=== PATIENT | female | born 1965 | race Caucasian/White ===

== ENCOUNTER 2018-09-15 08:00 | Outpatient (CLI) | payer OTHER | END 2018-09-15 23:59 | disposition home or self-care (01) | LOC: LAB.R 08:00 | PROVIDERS: ATTEND Physician Assistant Medical | DX: R39.15 Urgency of urination (principal) | CPT/HCPCS: 87086 ==

== ENCOUNTER 2018-10-31 12:28 | Outpatient (CLI) | payer OTHER ==
--- NOTE | 2018-11-03 15:49 | Mammography Report ---
Reason: ROUTINE MAMMO Procedure Date: 10/31/2018 Accession Number: [id number] / [id number] Procedure: MGN - Screening Mammo Dig Bilat CPT Code: FULL RESULT: EXAM: Screening Mammo Dig Bilat DATE: 10/31/2018 12:49 PM CLINICAL HISTORY: Routine screening TECHNIQUE: (B) - Bilateral CC and MLO views were obtained. COMPARISON: 08/12/2015 09/05/2012 and 05/18/2011 PARENCHYMAL PATTERN: (D) - The breasts demonstrate heterogeneously dense fibroglandular parenchyma bilaterally. FINDINGS: No significant interval change. There are no suspicious masses, calcifications, or areas of distortion. IMPRESSION: Negative examination. BI-RADS category 1. RECOMMENDATION: (ANNUAL) - Recommend routine annual screening mammography. BI-RADS CATEGORY: (1) - Negative. STANDARD QUALIFYING STATEMENTS: 1. This examination was not reviewed with the aid of Computer-Aided Detection (CAD). 2. A negative or benign imaging report should not preclude biopsy if clinically suspicious findings are present. 3. Dense breasts may obscure an underlying neoplasm. 4. This examination was reviewed without the aid of 3D breast imaging (tomosynthesis).
== END 2018-10-31 12:29 | disposition home or self-care (01) ==
LOC: DI.N 12:28
PROVIDERS: ATTEND Family Medicine
DX: Z12.31 Encounter for screening mammogram for malignant neoplasm of breast (principal)
CPT/HCPCS: 77067

== ENCOUNTER 2019-05-06 14:47 | Outpatient (CLI) | payer OTHER ==
--- NOTE | 2019-05-07 08:41 | XRAY Report ---
Reason: ASTHMA Procedure Date: 05/06/2019 Accession Number: [id number] / [id number] Procedure: WCP - Chest 2 View X-Ray CPT Code: 92165 Final Report FULL RESULT: EXAM: CHEST RADIOGRAPHY EXAM DATE: 05/06/2019 02:47 PM. CLINICAL HISTORY: ASTHMA. Cough and shortness of breath COMPARISON: None. TECHNIQUE: 2 views. FINDINGS: Lungs/Pleura: No focal opacities evident. No pleural effusion. No pneumothorax. Normal volumes. Mediastinum: Heart and mediastinal contours are unremarkable. Other: None. IMPRESSION: Normal 2-view chest radiography. RADIA
== END 2019-05-06 23:59 | disposition home or self-care (01) ==
LOC: DI.WCP 14:47
PROVIDERS: ATTEND Physician Assistant
DX: J45.901 Unspecified asthma with (acute) exacerbation (principal)
CPT/HCPCS: 71046

== ENCOUNTER 2021-07-27 09:29 | Outpatient (CLI) | payer OTHER ==
--- NOTE | 2021-07-27 10:33 | XRAY Report ---
PROCEDURE: Cervical Spine 2 View INDICATIONS: CERVICAL RADICULOPATHY TECHNIQUE: 3 view(s) of the cervical spine were acquired. COMPARISON: None. FINDINGS: Bones: No fractures or dislocations to the T7 level. The lateral masses of C1 appear intact on the odontoid view. No suspicious bony lesions. Mild C5-C6 and C6-C7 degenerative disc disease. Soft tissues: No prevertebral soft tissue swelling. IMPRESSION: Mild C5-C6 and C6-C7 degenerative disc disease. No acute osseous lesion. If there is continued clinical concern for pathology, then MRI should be con sidered for further evaluation. Reviewed by: Josi Russell MD, PhD on 07/27/2021 10:32 AM PDT Approved by: Josi Russell MD, PhD on 07/27/2021 10:32 AM PDT Station ID: [id number]
--- NOTE | 2021-07-27 10:34 | XRAY Report ---
PROCEDURE: Knee 3 View LT INDICATIONS: KNEE PAIN, LEFT TECHNIQUE: 3 views of the left mild osteoarthritic degenerative changes noted in all 3 compartments of the left knee. knee(s) were acquired. COMPARISON: None. FINDINGS: Bones: No fractures or dislocations. No suspicious bony lesions. Soft tissues: No joint effusion. No suspicious soft tissue calcifications. IMPRESSION: Mild left knee tricompartmental osteoarthritis. Reviewed by: Josi Russell MD, PhD on 07/27/2021 10:33 AM PDT Approved by: Josi Russell MD, PhD on 07/27/2021 10:33 AM PDT Station ID: [id number]
--- NOTE | 2021-07-27 10:35 | XRAY Report ---
PROCEDURE: Lumbar Spine 2 View INDICATIONS: LUMBAR RADICULOPATHY TECHNIQUE: 3 views of the lumbar spine were acquired. COMPARISON: None. FINDINGS: Bones: 5 hpi-jom-endoojp vertebrae are present. There is trace L1-L2, L2-L3 and L3 on L4 retrolisth esis. There is convex left lumbar spine scoliosis. No vertebral body compression fractures. No suspi cious bony lesions. Mild L1-L2, L2-L3 and L3-L4 degenerative disc disease. Mild L3-L4, L4-L5 and L5-S 1 facet arthropathy. Soft tissues: Overlying bowel gas pattern is normal. No suspicious soft tissue calcifications. IMPRESSION: 1. Multilevel degenerative disc disease. 2. Multilevel facet arthropathy. 3. No fracture. No acute osseous lesion. If there is continued clinical concern for pathology, then M RI should be considered for further evaluation. 4. Convex left scoliosis. Reviewed by: Josi Russell MD, PhD on 07/27/2021 10:34 AM PDT Approved by: Josi Russell MD, PhD on 07/27/2021 10:34 AM PDT Station ID: [id number]
== END 2021-07-27 09:30 | disposition home or self-care (01) ==
LOC: DI.N 09:29
PROVIDERS: ATTEND Physician Assistant Medical
DX: M17.12 Unilateral primary osteoarthritis, left knee (principal); M50.322 Other cervical disc degeneration at C5-C6 level; M51.36 Other intervertebral disc degeneration, lumbar region; M47.816 Spondylosis without myelopathy or radiculopathy, lumbar region; M47.817 Spondylosis without myelopathy or radiculopathy, lumbosacral region; M41.9 Scoliosis, unspecified

== ENCOUNTER 2021-09-14 15:30 | Outpatient (CLI) | payer OTHER ==
--- NOTE | 2021-09-15 09:46 | Mammography Report ---
BILATERAL DIGITAL SCREENING MAMMOGRAM 3D/2D: 09/14/2021 CLINICAL: Routine screening. Comparison is made to exams dated: 10/31/2018 mammogram, 08/26/2015 mammogram, 08/12/2015 mammogram, 08/06 mammogram, and 05/18/2011 mammogram - [facility]. There are scattered fibrogl andular elements in both breasts. No significant masses, calcifications, or other findings are seen in either breast. There has been no significant interval change. IMPRESSION: NEGATIVE There is no mammographic evidence of malignancy. A 1 year screening mammogram is recommended. Based on the Tyrer Cuzick model (a risk assessment model) the patients lifetime risk is 8.9% and her 10 year risk is 2.9%. According to the ACR, ACS, and NCCN guidelines, an annual breast MRI exam anjali g with mammogram is recommended if the patients lifetime risk is 20% or greater. This exam was interpreted at Station ID: [id number]. NOTE: For mammograms, a report in lay terms will be sent to the patient. Approximately 15% of breast malignancies will not be visualized mammographically. In the management of a palpable breast mass, a negative mammogram must not discourage biopsy of a clinically suspicious lesion. Electronically Signed By: Alvino Vega acr/[email or web address]:09/15/2021 08:55:02 ACR BI-RADS Category 1: Negative 3341F PARENCHYMAL PATTERN: (A) - The breast(s) demonstrate(s) scattered fibroglandular densities. BI-RADS CATEGORY: (1) - 1 RECOMMENDATION: (ANNUAL) - Recommend routine annual screening mammography. [id number] 1 year screening LATERALITY: (B)
== END 2021-09-14 15:31 | disposition home or self-care (01) ==
LOC: DI.N 15:30
DX: Z12.31 Encounter for screening mammogram for malignant neoplasm of breast (principal)

== ENCOUNTER 2022-03-06 09:04 | Day surgery (SDC) | payer OTHER ==
[2022-03-06] MEDS ORDERED: LACTATED RINGERS 1,000 ML IV ONE ×2 (09:08→12:27)
[2022-03-06] MEDS ORDERED: PROPOFOL 500 MG/50 ML 500 MG/50 ML VIAL ONE (09:09)
[2022-03-06] MEDS ORDERED: MIDAZOLAM 2 MG/2 ML VIAL ONE (10:01)
--- NOTE | 2022-03-06 10:02 | ANESTHESIA ---
Pre-Anesthesia VS, & Labs - Diagnosis positve cologuard, hemorrhoid - Procedure colonoscopy, possible hemorrhoid banding Vital Signs: Temp Pulse Resp BP Pulse Ox O2 Flow Rate 36.1 C L 67 18 101/81 H 97 03/06/22 09:09 03/06/22 09:09 03/06/22 09:09 03/06/22 09:09 03/06/22 09:09 Height: 5 ft 4 in Weight (kg): 86.7 kg Body Mass Index: 32.8 BMI Classification: Obese - NPO >8 hours Last Fluid Intake: am prep - Is Patient ?: No - Lab Results Lab results reviewed: Yes Home Medications and Allergies Home Medications: Ambulatory Orders ALPRAZolam [Alprazolam] 0.5 mg PO DAILY 03/05/22 busPIRone [Buspar] 30 mg PO DAILY 03/05/22 ALPRAZolam [Alprazolam] 0.5 mg PO DAILY 03/05/22 busPIRone [Buspar] 30 mg PO DAILY 03/05/22 Allergies/Adverse Reactions: Allergies Allergy/AdvReac Type Severity Reaction Status Date / Time Sulfa (Sulfonamide AdvReac Unknown Verified 03/05/22 12:30 Antibiotics) Anes History & Medical History - Anesthetic History Anesthesia Complications: reports: No previous complications Family history of Anesthesia Complications: Denies Family history of Malignant Hyperthermia: Denies - Medical History Cardiovascular: reports: Arrhythmia Pulmonary: reports: Asthma Gastrointestinal: reports: Hemorrhoids Urinary: reports: None Musculoskeletal: reports: Osteoarthritis Endocrine/Autoimmune: reports: None Skin: reports: None Exam General: Alert, Oriented x3 Dental: WNL Mouth Openin Fingerbreadth Neck Mobility: Normal Mallampati classification: II Thyromental Distance: 4-6 cm Respiratory: Lungs clear, Normal breath sounds, No respiratory distress Cardiovascular: Regular rate Neurological: Normal speech Mental/Cognitive Status: Alert/Oriented X3, Normal for patient Cognitive Status: Within normal limits Plan Anesthesia Type: Total IV Consent for Procedure(s) Verified and Reviewed: Yes Code Status: Attempt Resuscitation ASA classification: 2-Mild systemic disease Is this case an emergency?: No
[2022-03-06] MEDS ORDERED: PROPOFOL 200 MG/20 ML VIAL IVP ONE ×2 (10:15→12:14)
[2022-03-06] MEDS ORDERED: GLYCOPYRROLATE 1 MG/5 ML VIAL ONE (11:46)
[2022-03-06] MEDS ORDERED: DIATRIZOATE MEGLU/DIATRIZO SOD 30 ML BOTTLE PO ONE ×2 (12:50→15:06)
[2022-03-06] MEDS ORDERED: iohexoL-300 100 ML VIAL ONE (12:50)
[2022-03-06 13:08] LABS: CALCIUM 8.9 mg/dL (8.5-10.3); POTASSIUM 4.1 mmol/L (3.5-5.0)
--- NOTE | 2022-03-06 13:53 | ANESTHESIA POST OP EVALUATION ---
Anesthesia Post Eval - Post Anesthesia Eval Vitals: Last Vital Signs Temp 36.5 C 03/06/22 12:45 Pulse 52 L 03/06/22 12:45 Resp 16 03/06/22 12:45 BP 110/47 L 03/06/22 12:45 Pulse Ox 100 03/06/22 12:45 O2 Flow Rate CV Function Including HR & BP: Stable Pain Control: Satisfactory Nausea & Vomiting: Negative Mental Status: Baseline Respiratory Status: Airway Patent Hydration Status: Satisfactory Anesthesia Complications: None
[2022-03-06 14:06] VITALS: BP 115/71
[2022-03-06] MEDS ORDERED: iohexoL-300 100 ML VIAL IVP ONE (15:06)
--- NOTE | 2022-03-06 15:16 | CT Report ---
PROCEDURE: Macro CT abdomen and pelvis with contrast INDICATIONS: incomplete colonoscopy, please use rectal contrast CONTRAST: 100ml OMnipaque 300 TECHNIQUE: After the administration of IV and rectal contrast, 5 mm thick sections acquired from the diaphragms to the symphysis. 5 mm thick coronal and sagittal reformats were acquired. For radiation dose reduc tion, the following was used: automated exposure control, adjustment of mA and/or kV according to pa tient size. COMPARISON: None. FINDINGS: Lower thorax: The lung bases are clear. Heart size normal. No hiatal hernia. Liver: Normal in size and attenuation. No contour deformity present. Biliary system: Cholelithiasis without cholecystitis Pancreas: Unremarkable without mass or inflammation evident. Spleen: Normal in size and density. Adrenals: Normal morphology and density. Reproductive system: Unremarkable as visualized. Urinary system: Normal renal size and attenuation. No renal calculi, hydronephrosis, or solid mass p resent. Urinary bladder unremarkable. Gastrointestinal system: Normal sigmoid diverticuli noted. No evidence of constricting mass lesion. Appendix: No findings to suggest acute appendicitis. Peritoneal spaces: No mesenteric or retroperitoneal adenopathy. No free air. No free fluid. Vasculature: The IVC, aorta and iliac vasculature are unremarkable. Musculoskeletal: Normal bone mineralization. No acute fractures. Abdominal wall intact without brett dence of ventral or inguinal hernias. IMPRESSION: 1. Minimal sigmoid diverticulosis. Otherwise unremarkable CT colon with rectal contrast. No evidence of constricting mass lesion. 2. Incidental cholelithiasis without cholecystitis Reviewed by: Diego Schultz MD on 03/06/2022 2:15 PM AKST Approved by: Diego Schultz MD on 03/06/2022 2:15 PM AKST Station ID: [id number]
== END 2022-03-06 09:05 | disposition home or self-care (01) ==
LOC: SDS 09:04
PROVIDERS: ATTEND Surgery
DX: R19.5 Other fecal abnormalities (principal); K57.30 Diverticulosis of large intestine without perforation or abscess without bleeding; E66.9 Obesity, unspecified; Z68.32 Body mass index [BMI] 32.0-32.9, adult
CPT/HCPCS: 36415; 45378; 74177; 80048; J7120; Q9963; Q9967

== ENCOUNTER 2022-05-29 08:00 | Outpatient (CLI) | payer OTHER ==
[2022-05-29 20:57] LABS: BACTERIAL VAGINOSIS DNA NEGATIVE (NEGATIVE); CANDIDA GLABRATA DNA NEGATIVE (NEGATIVE); CANDIDA GROUP DNA NEGATIVE (NEGATIVE); CANDIDA KRUSEI DNA NEGATIVE (NEGATIVE); TRICHOMONAS VAGINALIS DNA NEGATIVE (NEGATIVE)
== END 2022-05-29 23:59 | disposition home or self-care (01) ==
LOC: LAB.WCP 08:00
PROVIDERS: ATTEND Physician Assistant Medical
DX: N76.0 Acute vaginitis (principal)
CPT/HCPCS: 81514

== ENCOUNTER 2022-07-11 08:00 | Outpatient (CLI) | payer OTHER | END 2022-07-11 23:59 | disposition home or self-care (01) | LOC: LAB 08:00 | PROVIDERS: ATTEND Nurse Practitioner | DX: S81.801A Unspecified open wound, right lower leg, initial encounter (principal) | CPT/HCPCS: 87070; 87077; 87181; 87205 ==

== ENCOUNTER 2023-09-17 01:27 | Emergency (ER) | payer OTHER ==
--- NOTE | 2023-09-17 01:42 | ED Physician Documentation ---
PD HPI DYSPNEA - Stated complaint Stated Complaint: COUGH/SOA - Chief complaint Chief Complaint: Resp - History obtained from History obtained from: Patient - Additional information Additional information: HPI from patient. Patient complains of shortness of breath, wheezing. Patient says she had URI symptoms last month at which time she took a home COVID test with positive result. On 09/03, patient saw PCP (scheduled visit); she mentioned to her PCP that she was still having frequent coughing, occasional wheezing, and mild shortness of breath since the COVID test was positive. She was prescribed levalbuterol; she says she has been diagnosed with asthma in the past and recalls some jitteriness with albuterol (and thus was prescribed levalbuterol). She says she has had decreasing results with the levalbuterol since it was prescribed. She contacted her primary care provider who then submitted a prescription for Arnuita Ellipta (fluticasone furoate) to her pharmacy, but patient has not yet picked it up as she notes the text from her pharmacy that the medication was ready indicated the cost will be $230. Patient tried a DuoNeb without relief earlier tonight (as noted above, she has not had an asthma exacerbation in a few years, and she found that the DuoNeb had 3 years ago). Patient presents at this time due to steadily worsening dyspnea, intermittent wheezing, frequent nonproductive cough. On ROS, initially denies chest pain but then clarifies that she has some chest discomfort when coughing. Denies leg swelling. Denies fever Review of Systems Constitutional: denies: Fever, Chills, Sweats Cardiac: reports: Chest pain / pressure (only with coughing). denies: Pedal edema, Calf pain Respiratory: reports: Dyspnea, Cough, Wheezing. denies: Hemoptysis PD PAST MEDICAL HISTORY - Past Medical History Past Medical History: Yes Cardiovascular: Arrhythmia Respiratory: Asthma Endocrine/Autoimmune: None GI: Hemorrhoids : None HEENT: Chronic vision loss Psych: Depression, Anxiety Musculoskeletal: Osteoarthritis Derm: None - Past Surgical History Past Surgical History: No - Present Medications Home Medications: Ambulatory Orders Medication Instructions Recorded Confirmed ALPRAZolam [Alprazolam] 0.5 mg PO DAILY 03/05/22 03/05/22 busPIRone [Buspar] 30 mg PO DAILY 03/05/22 03/06/22 Ipratropium/Albuterol [Duoneb] 3 ml INH Q6H PRN #30 ea 09/17/23 guaiFENesin/CODEINE [Robitussin AC] 5 - 10 ml PO Q6H PRN #100 ml 09/17/23 predniSONE [Deltasone] 40 mg PO DAILY 4 Days #8 tablet 09/17/23 - Allergies Allergies/Adverse Reactions: Allergies Allergy/AdvReac Type Severity Reaction Status Date / Time Sulfa (Sulfonamide AdvReac Unknown Verified 03/05/22 12:30 Antibiotics) - Social History Does the pt smoke?: No Smoking Status: Never smoker PD ED PE NORMAL - Vitals Vital signs reviewed: Yes - General General: Alert and oriented X 3, No acute distress, Well developed/nourished - HEENT HEENT: Pharynx benign - Neck Neck: Supple, no meningeal sign - Cardiac Cardiac: RRR (occasional extra beats) - Respiratory Respiratory: No respiratory distress, Clear bilaterally - Extremities Extremities: No edema Results - Vitals Vitals: Vital Signs - 24 hr 09/17/23 09/17/23 01:33 03:08 Temperature 36.9 C Heart Rate 58 L 54 L Respiratory 16 16 Rate Blood Pressure 157/68 H 150/66 H O2 Saturation 99 98 Oxygen O2 Source Room air - Labs Labs: Laboratory Tests 09/17/23 01:37 Nasal Adenovirus (PCR) NOT DETECTED Nasal B. parapertussis DNA (PCR) NOT DETECTED Nasal Coronavir 229E PCR NOT DETECTED Nasal Coronavir HKU1 PCR NOT DETECTED Nasal Coronavir NL63 PCR NOT DETECTED Nasal Coronavir OC43 PCR NOT DETECTED Nasal Enterovir/Rhinovir PCR NOT DETECTED Nasal Influenza B PCR NOT DETECTED Nasal Influenza A PCR NOT DETECTED Nasal Parainfluen 1 PCR NOT DETECTED Nasal Parainfluen 2 PCR NOT DETECTED Nasal Parainfluen 3 PCR NOT DETECTED Nasal Parainfluen 4 PCR NOT DETECTED Nasal RSV (PCR) NOT DETECTED Nasal B.pertussis DNA PCR NOT DETECTED Nasal C.pneumoniae (PCR) NOT DETECTED Behzad Human Metapneumo PCR NOT DETECTED Nasal M.pneumoniae (PCR) NOT DETECTED Nasal SARS-CoV-2 (PCR) NOT DETECTED - Rads (name of study) chest xray Relevant Findings:: Prelim report reviewed, EMP independent interpretation of test (I reviewed these images and my interpretation is no cardiopulmonary abnormality), See rad report PD Medical Decision Making - ED course Complexity details: reviewed results, considered differential, d/w patient ED course: Normal chest x-ray, respiratory PCR panel is negative for the viruses tested on this panel including COVID, influenza, RSV. Patient is in NAD and lungs are clear to auscultation bilaterally with good air movement and no adventitious sounds (including no wheezing). Patient does exhibit occasional dry cough during H+P. Given patient's history of asthma, her report of intermittent wheezing and waxing and waning dyspnea, she is given 40 mg p.o. prednisone and I am electronically submitting a prescription for a 4-day course of 40 mg prednisone daily to her pharmacy of choice. I have also submitted a prescription for DuoNebs to be used with her nebulizer when she finds her albuterol is not providing adequate relief for her symptoms. Lastly, she is given 10 mL of Robitussin AC in the emergency department and I have also submitted rx for robitussin AC (with codeine) to her pharmacy of choice. Patient is being driven home. Results discussed with patient, return precautions reviewed. I suspect her symptoms are due to lingering upper airway inflammation as a result of last month's COVID URI, possibly with occasional asthma exacerbations. Advised her to contact her primary care provider regarding options for alternatives to the fluticasone rx she has waiting at her pharmacy. Departure - Departure Disposition: 01 Home, Self Care Clinical Impression: Bronchitis, Asthma Condition: Good Instructions: ED Bronchitis Asthmatic Prescriptions: predniSONE [Deltasone] 40 mg PO DAILY 4 Days #8 tablet Ipratropium/Albuterol [Duoneb] 3 ml INH Q6H PRN #30 ea PRN Reason: Dyspnea guaiFENesin/CODEINE [Robitussin AC] 5 - 10 ml PO Q6H PRN #100 ml PRN Reason: Cough Comments: Your chest x-ray was normal tonight (no evidence of pneumonia or any other acute abnormality). The nasal swab was negative for the viruses tested on our respiratory viral panel (including COVID, influenza, RSV). Your lungs were clear on my examination. As we discussed, I suspect you are having lingering respiratory issues from last months COVID infection including, by your description of intermittent wheezing, episodic asthma exacerbations. You were given the first dose of prednisone (steroid) in the emergency department, and I am electronically submitting a prescription for 4 more days (once daily) of the prednisone to the [facility] pharmacy in [place]. You were also given a codeine-containing cough suppressant, which I am also prescribing. Lastly, I have included a prescription for more of the DuoNeb medication (albuterol, ipratropium) for use with your nebulizer to the [facility] pharmacy. I am prescribing a short course of narcotic pain medication for you. These are potentially dangerous and addictive medications that should be used carefully. These medications may constipate you. Take an dppg-jmg-uibzduf stool softener (docusate) twice daily with plenty of water while taking these medications. If you go 24 hours without a bowel movement, take xlfi-ixe-luwlhnd miralax, per package instructions. Do not drink or drive while taking these medications. If you received narcotic or sedating medications while in the emergency department, do not drive for 24 hours. Store this medication in a safe, secure place and out of reach of children. It is a violation of federal law to give or sell this medication to another person or to use in a manner other than prescribed. The ED will not refill narcotic prescriptions, including prescriptions lost or stolen. To dispose of unwanted medications: 1. [facility] [address] in [place] has a medication drop box. They accept prescription medications (in pill form) Saturday through Saturday 9:00 a.m. to 5:00 p.m. 2. The [facility] [employer] accepts prescription medications (in pill form only) for disposal year round. Call for more information. 3. Contact the [facility] for the next [facility] sponsored prescription drug collection event. , [phone], or [phone]; Discharge Date/Time: 09/17/23 03:09
[2023-09-17 02:37] LABS: CORONAVIRUS 229E-RESP PCR NOT DETECTED; CORONAVIRUS HKU1-RESP PCR NOT DETECTED
[2023-09-17 02:38] LABS: B. PARAPERTUSSIS- RESP PCR PAN NOT DETECTED; B. PERTUSSIS- RESP PCR PANEL NOT DETECTED; C. PNEUMONIAE- RESP PCR PANEL NOT DETECTED; CORONAVIRUS NL63-RESP PCR NOT DETECTED; CORONAVIRUS OC43-RESP PCR NOT DETECTED; HUMAN METAPNEUMOVIRUS NOT DETECTED; INFLUENZA A- RESP PCR PANEL NOT DETECTED; INFLUENZA B - RESP PCR PANEL NOT DETECTED; M. PNEUMONIAE- RESP PCR PANEL NOT DETECTED; PARAINFLUENZA VIRUS 1 NOT DETECTED; PARAINFLUENZA VIRUS 2 NOT DETECTED; PARAINFLUENZA VIRUS 3 NOT DETECTED; PARAINFLUENZA VIRUS 4 NOT DETECTED; RHINOVIRUS/ENTEROVIRUS NOT DETECTED; RSV- RESP PCR PANEL NOT DETECTED; SARS-CoV-2 -RESP PCR PANEL NOT DETECTED
[2023-09-17] MEDS: predniSONE 20 MG TABLET PO STA (03:02)
[2023-09-17] MEDS: guaiFENesin/CODEINE 5 ML UDC PO STA (03:03)
[2023-09-17 03:09] VITALS: BP 150/66; O2SAT 98
--- NOTE | 2023-09-17 10:17 | XRAY Report ---
PROCEDURE: Chest 2V INDICATIONS: cough TECHNIQUE: 2 views of the chest were acquired. COMPARISON: 05/06/2019. FINDINGS: Surgical changes and devices: None. Lungs and pleura: No pleural effusions or pneumothorax. Lungs are clear. Mediastinum: Mediastinal contours appear normal. Heart size is normal. Bones and chest wall: No suspicious bony lesions. Overlying soft tissues appear unremarkable. IMPRESSION: No acute cardiopulmonary process. Findings are concordant with preliminary interpretation provided by [facility]. Reviewed by: Miquel Kelsey MD on 09/17/2023 10:16 AM PDT Approved by: Miquel Kelsey MD on 09/17/2023 10:16 AM PDT Station ID: [id number]
== END 2023-09-17 03:09 | disposition home or self-care (01) ==
LOC: ED 01:27
DX: J45.909 Unspecified asthma, uncomplicated (principal)
CPT/HCPCS: 71046; 87633; 99282; 99284; A9270; J7512